=== PATIENT | male | born 1960 | race Two or more races ===

== ENCOUNTER 2024-04-17 01:33 | Emergency (ER) | payer OTHER ==
[~2024-04-17] VITALS: Ht 162.6 cm; Wt 71.2 kg
[2024-04-17] MEDS ORDERED: VASOTEC20 MG PO (01:43)
[2024-04-17] MEDS ORDERED: PANTOPRAZOLE SO20 MG PO (01:43)
[2024-04-17] MEDS ORDERED: ATORVASTATIN CA40 MG PO (01:43)
[2024-04-17] MEDS ORDERED: HORIZANT300 MG PO (01:43)
[2024-04-17] MEDS ORDERED: BACLOFEN10 MG PO (01:44)
[2024-04-17] MEDS ORDERED: CARAFATE1 GM PO (01:44)
[2024-04-17] MEDS ORDERED: DILTIAZEM ER120 MG PO (01:44)
[2024-04-17] MEDS ORDERED: TOPROL XL100 M1 PO (01:44)
[2024-04-17] MEDS ORDERED: SERTRALINE20 MG/1 ML (01:45)
[2024-04-17] MEDS ORDERED: PROZAC40 MG PO (01:45)
[2024-04-17] MEDS ORDERED: TEMAZEPAM30 MG PO (01:45)
[2024-04-17] MEDS ORDERED: KETOROLAC TROMETHAMINE 60 MG VIAL IM STA (03:21)
[2024-04-17] MEDS ORDERED: DEXAMETHASONE SODIUM PHOSPHATE 4 MG/ML VIAL IM STA (03:22)
[2024-04-17] MEDS ORDERED: KETOROLAC TROMETHAMINE 60 MG VIAL IM ONE (03:25)
[2024-04-17] MEDS ORDERED: DEXAMETHASONE SODIUM PHOSPHATE 4 MG/ML VIAL ONE ×2 (03:25→03:27)
== END 2024-04-17 04:19 | disposition home or self-care (01) ==
LOC: ER 01:35
DX: M25.562 Pain in left knee (principal)
CPT/HCPCS: 96372; 99282; J1100; J1885

== ENCOUNTER 2024-05-01 22:59 | Emergency (ER) | payer OTHER ==
[~2024-05-01] VITALS: Ht 162.6 cm; Wt 73.5 kg
[~2024-05-01 22:59] MED LIST: ATORVASTATIN CA40 MG PO; BACLOFEN10 MG PO; CARAFATE1 GM PO; DILTIAZEM ER120 MG PO; HORIZANT300 MG PO; PANTOPRAZOLE SO20 MG PO; PROZAC40 MG PO; SERTRALINE20 MG/1 ML; TEMAZEPAM30 MG PO; TOPROL XL100 M1 PO; VASOTEC20 MG PO
[2024-05-01] MEDS ORDERED: TRAZODONE HCL150 MG PO (23:40)
[2024-05-01] MEDS ORDERED: CAMBIA50 MG PO (23:40)
[2024-05-02] MEDS ORDERED: DEXAMETHASONE SODIUM PHOSPHATE 4 MG/ML VIAL IM STA (01:47)
[2024-05-02] MEDS ORDERED: KETOROLAC TROMETHAMINE 60 MG VIAL IM STA (01:47)
[2024-05-02] MEDS ORDERED: DEXAMETHASONE SODIUM PHOSPHATE 4 MG/ML VIAL ONE (01:51)
== END 2024-05-02 01:58 | disposition home or self-care (01) ==
LOC: ER 23:01
DX: M25.562 Pain in left knee (principal)
CPT/HCPCS: 96372; 99283; J1100; J1885